=== PATIENT | female | born 1950 | race Two or more races ===

== ENCOUNTER → 2024-10-25 | Outpatient (CLI) | payer MEDICARE, SELFPAY ==
--- NOTE | 2024-10-25 14:15 | XR_ITS ---
Examination: Screening digital mammography, bilateral Computer aided detection 3-D breast Tomosynthesis, bilateral Date and time of exam: October 25, 2024 1419 hours Compared to mammograms dating to August 16, 2021 Indication: Screening Technique: Nonmagnified MLO, CC views of the breasts to been obtained, reconstructed from 3-D Tomosynthesis images. R2 computer aided detection program utilized for evaluation of suspicious masses and/or abnormal calcifications. 3-D Tomosynthesis images obtained. Findings: Scattered areas of fibroglandular density. Scar formation right breast consistent with patient's history treated right breast cancer No interval suspicious masses Impression: BI-RADS category II: Benign Findings. Recommend 1 year follow-up mammogram.
== END | disposition home or self-care (01) ==
LOC: CDIM 14:08
PROVIDERS: Referring Provider Licensed Vocational Nurse; Visit Provider Licensed Vocational Nurse
DX: Z12.31 Encounter for screening mammogram for malignant neoplasm of breast (principal); R92.323 Mammographic fibroglandular density, bilateral breasts
CPT/HCPCS: 77063; 77067